=== PATIENT | male | born 1990 | race African-American/Black ===

== ENCOUNTER 2018-02-24 07:35 | Emergency (ER) | payer SELFPAY ==
[~2018-02-24] VITALS: Ht 177.8 cm; Wt 74.8 kg
--- OUTSIDE RECORDS SUMMARY | 2018-02-24 07:37 | XMS REPORT ---
Author Author [facility] Address Unknown Phone Unavailable Care Team Providers Care Land Examiner Name Role Phone DR DARIUS BLANK Unavailable Unavailable Problems This patient has no known problems. Allergies, Adverse Reactions, Alerts This patient has no known allergies or adverse reactions. Medications This patient has no known medications. Encounters Start Date/Time End Date/Time Encounter Type Admission Type Attending Clinicians Care Facility Care Department Encounter ID 2018-01-11 23:19:00 2018-01-12 23:55:00 Outpatient DARIUS [facility] [id number]
== END 2018-02-24 08:03 | disposition left against medical advice (07) ==
LOC: FSED 07:35
DX: K08.89 Other specified disorders of teeth and supporting structures (principal)